=== PATIENT | female | born 1970 | race Caucasian/White ===

== ENCOUNTER 2016-12-07 18:44 | Inpatient (IN) | payer MEDICAID, OTHER ==
[~2016-12-07] VITALS: Ht 172.7 cm; Wt 82.4 kg
[~2016-12-07 18:44] MED LIST: ARIP20TA8 PO; BUTA1CAP29 PO; LAMO200T PO; SERT100T8 PO; SUMA100T3 PO; TOPI100T90 PO; TRAZ100T12 PO
[2016-12-07 19:24] LABS: BILIRUBIN,URINE SMALL (NEG); GLUCOSE,URINE >=1000 mg/dL (NEG); NITRITE,URINE NEGATIVE (NEG); PROTEIN,URINE 100 mg/dL (NEG-TRACE); UROBILINOGEN,URINE 0.2 mg/dL (0.2 mg/dL)
[2016-12-07 19:30] LABS: RBC,URINE 0 /HPF (0-2)
[2016-12-07 19:31] LABS: BACTERIA,URINE MOD /HPF (0-FEW); SQUAMOUS EPITHELIAL CELL,UR MANY /LPF; YEAST,URINE PRESENT /HPF
[2016-12-07] MEDS ORDERED: IV NORMAL SALINE 1000ML BAG 1,000 ML IV SCH (19:38)
[2016-12-07 20:30] LABS: OBC FLU VALID
[2016-12-07] MEDS ORDERED: ONDANSETRON PF 4 MG/2 ML VIAL. IV ONE (20:30)
[2016-12-07] MEDS ORDERED: KETOROLAC 15 MG/ML VIAL. IV ONE (20:30)
[2016-12-07] MEDS ORDERED: METOCLOPRAMIDE HCL 10 MG/2 ML VIAL. IV ONE (20:30)
[2016-12-07 20:33] LABS: BASO % 1 % (0-3); EOS % 0 % (0-3); HEMATOCRIT 46.7 % (36.0-47.0); HEMOGLOBIN 15.5 g/dL (12.0-15.5); LYMPH # 0.8 x10^3/uL (1.0-4.8); LYMPH % 18 % (24-48); MEAN CORPUSCULAR HEMOGLOBIN 29 pg (25-35); MEAN CORPUSCULAR HGB CONC 33 g/dL (31-37); MEAN CORPUSCULAR VOLUME 87 fL (79-100); MONO % 9 % (0-9); NEUT % 72 % (31-73); PLATELET COUNT 249 x10^3/uL (140-400); RED BLOOD COUNT 5.38 x10^6/uL (3.50-5.40); RED CELL DISTRIBUTION WIDTH 13.6 % (11.5-14.5); WHITE BLOOD COUNT 4.4 x10^3/uL (4.0-11.0)
[2016-12-07 20:39] LABS: CALCIUM 8.8 mg/dL (8.5-10.1); CREATININE 0.9 mg/dL (0.6-1.0); GFR 67.7; POTASSIUM 3.7 mmol/L (3.5-5.1)
[2016-12-07 20:44] LABS: ALBUMIN 3.9 g/dL (3.4-5.0); ALBUMIN/GLOBULIN RATIO 1.3 (1.0-1.7); TOTAL BILIRUBIN 0.5 mg/dL (0.2-1.0); TOTAL PROTEIN 6.9 g/dL (6.4-8.2)
[2016-12-07 21:02] LABS: % BASOS 2 % (0-3)
[2016-12-07 21:03] LABS: PLT ESTIMATE ADEQUATE (ADEQUATE)
[2016-12-07] MEDS ORDERED: IV NORMAL SALINE 1000ML BAG 1,000 ML IV ONE (22:15)
[2016-12-07] MEDS: MORPHINE SULFATE 4 MG/ML DISP.SYRIN. IV/SQ PRN ×2 (22:59→23:45)
--- NOTE | 2016-12-07 23:31 | ED.ADGEN ---
Past Medical History Past Medical History: Bipolar, Depression, Diabetes-Type I, Other Additional Past Medical Histor: migraines Past Surgical History: Cholecystectomy, Alcohol Use: None Drug Use: None Adult General Chief Complaint Chief Complaint: HYPERGLYCEMIA HPI HPI Patient is a 46 year old woman, history of type 2 diabetes mellitus, depression , bipolar disorder, who presents emergency department with multiple complaints. Patient states she's been experiencing generalized malaise for the past several days, states that she began experiencing one of her "typical", migraine headaches, most located in the right side of her head, has been experiencing also nausea and vomiting, which is often concurrent with the symptoms, which is usually when she knows that "my sugars are way too high". Patient states she has been taking her medications as directed, has not been checking her sugars. Patient's initial Accu-Chek in the ED is 235. She states that she's had multiple episodes of nausea and vomiting, denies any injuries or sick contacts. No fevers or chills. States that her entire abdomen is sore from vomiting, but this occurred after multiple doses of vomiting. No diarrhea. No weakness emesis or tingling, denies any change in her typical headache type symptoms. No chest pain or shortness of breath. Review of Systems Review of Systems Constitutional: Denies fever or chills. [] Eyes: Denies change in visual acuity. [] HENT: Denies nasal congestion or sore throat. [] Respiratory: Denies cough or shortness of breath. [] Cardiovascular: Denies chest pain or edema. [] GI: Abdominal "soreness", nausea, vomiting, no bloody stools or diarrhea. : Denies dysuria. [] Musculoskeletal: Denies back pain or joint pain. [] Integument: Denies rash. [] Neurologic: Denies headache, focal weakness or sensory changes. [] Endocrine: Denies polyuria or polydipsia. [] Lymphatic: Denies swollen glands. [] Psychiatric: Denies depression or anxiety. [] Current Medications Current Medications Current Medications Medications (Trade) Dose Ordered Sig/Levi Start Time Stop Time Status Last Admin Dose Admin Insulin Human Regular 150 unit/ Sodium Chloride 151.5 ml @ 0 mls/hr CONT PRN PRN 12/08/16 02:00 Ketorolac Tromethamine (Toradol) 10 mg 1X ONCE 12/07/16 20:30 12/07/16 20:31 DC 12/07/16 20:39 10 MG Lidocaine HCl (Xylocaine-Mpf 1% Vial) 1 ml 1X ONCE 12/07/16 23:55 12/07/16 23:56 DC 12/08/16 00:09 1 ML Metoclopramide HCl (Reglan) 10 mg 1X ONCE 12/07/16 20:30 12/07/16 20:31 DC 12/07/16 20:39 10 MG Morphine Sulfate 4 mg PRN Q15MIN PRN 12/07/16 22:45 12/08/16 22:44 12/08/16 00:27 4 MG Ondansetron HCl (Zofran) 4 mg 1X ONCE 12/07/16 20:30 12/07/16 20:31 DC 12/07/16 20:26 4 MG Ondansetron HCl 4 mg 4 mg 1X ONCE 12/08/16 00:15 12/08/16 00:16 DC 12/08/16 00:27 4 MG Potassium Chloride 100 ml @ 100 mls/hr PRN Q1HR PRN 12/08/16 01:45 Sodium Chloride (Iv Sodium Chloride 0.9% 1000ml Bag) 1,000 ml @ 500 mls/hr 1X ONCE 12/08/16 01:45 12/08/16 03:44 Allergies Allergies Allergies Coded Allergies Type Severity Reaction Last Updated Verified No Known Drug Allergies 11/12/16 No Physical Exam Physical Exam Constitutional: Well developed, well nourished, no acute distress, non-toxic appearance. [] HENT: Normocephalic, atraumatic, bilateral external ears normal, oropharynx moist, no oral exudates, nose normal. [] Eyes: PERRLA, EOMI, conjunctiva normal, no discharge. [] Neck: Normal range of motion, no tenderness, supple, no stridor. [] Cardiovascular:Heart rate regular rhythm, no murmur [] Lungs & Thorax: Bilateral breath sounds clear to auscultation [] Abdomen: Bowel sounds normal, soft, no tenderness, no masses, no pulsatile masses. [] Skin: Warm, dry, no erythema, no rash. [] Back: No tenderness, no CVA tenderness. [] Extremities: No tenderness, no cyanosis, no clubbing, ROM intact, no edema. [] Neurologic: Alert and oriented X 3, normal motor function, normal sensory function, no focal deficits noted. [] Psychologic: Affect normal, judgement normal, mood normal. [] Current Patient Data Vital Signs Vital Signs Date Time Temp Pulse Resp B/P Pulse Ox O2 Delivery O2 Flow Rate FiO2 12/08/16 00:27 Room Air 12/08/16 00:11 98 12/07/16 21:00 116 14 109/66 12/07/16 19:10 98.4 98.4 Lab Values Laboratory Tests Test 12/07/16 19:07 12/07/16 19:11 12/07/16 19:20 12/07/16 20:00 Urine Collection Type Unknown Urine Color Yellow Urine Clarity Cloudy Urine pH 6.0 Urine Specific [place] >=1.030 Urine Protein 100mg/dL (NEG-TRACE) Urine Glucose (UA) >=1000mg/dL (NEG) Urine Ketones (Stick) >=80mg/dL (NEG) Urine Blood Negative (NEG) Urine Nitrite Negative (NEG) Urine Bilirubin Small (NEG) Urine Urobilinogen Dipstick 0.2mg/dL (0.2 mg/dL) Urine Leukocyte Esterase Negative (NEG) Urine RBC 0/HPF (0-2) Urine WBC 5-10/HPF (0-4) Urine Squamous Epithelial Cells Many/LPF Urine Bacteria Mod/HPF (0-FEW) Urine Yeast Present/HPF Glucose (Fingerstick) 233mg/dL (70-99) H POC Urine HCG, Qualitative Hcg negative (Negative) Influenza Type A Antigen Negative (NEGATIVE) Influenza Type B Antigen Negative (NEGATIVE) Test 12/07/16 20:15 12/07/16 23:35 White Blood Count 4.4x10^3/uL (4.0-11.0) Red Blood Count 5.38x10^6/uL (3.50-5.40) Hemoglobin 15.5g/dL (12.0-15.5) Hematocrit 46.7% (36.0-47.0) Mean Corpuscular Volume 87fL (79-100) Mean Corpuscular Hemoglobin 29pg (25-35) Mean Corpuscular Hemoglobin Concent 33g/dL (31-37) Red Cell Distribution Width 13.6% (11.5-14.5) Platelet Count 249x10^3/uL (140-400) Neutrophils (%) (Auto) 72% (31-73) Lymphocytes (%) (Auto) 18% (24-48) L Monocytes (%) (Auto) 9% (0-9) Eosinophils (%) (Auto) 0% (0-3) Basophils (%) (Auto) 1% (0-3) Neutrophils # (Auto) 3.1x10^3uL (1.8-7.7) Lymphocytes # (Auto) 0.8x10^3/uL (1.0-4.8) L Monocytes # (Auto) 0.4x10^3/uL (0.0-1.1) Eosinophils # (Auto) 0.0x10^3/uL (0.0-0.7) Basophils # (Auto) 0.0x10^3/uL (0.0-0.2) Segmented Neutrophils % 70% (35-66) H Band Neutrophils % 4% (0-9) Lymphocytes % 20% (24-48) L Monocytes % 4% (0-10) Basophils % 2% (0-3) Platelet Estimate Adequate (ADEQUATE) Sodium Level 141mmol/L (136-145) Potassium Level 3.7mmol/L (3.5-5.1) Chloride Level 104mmol/L (98-107) Carbon Dioxide Level 14mmol/L (21-32) L Anion Gap 23 (6-14) H Blood Urea Nitrogen 7mg/dL (7-20) Creatinine 0.9mg/dL (0.6-1.0) Estimated GFR (Cockcroft-Gault) 67.7 BUN/Creatinine Ratio 8 (6-20) Glucose Level 269mg/dL (70-99) H Calcium Level 8.8mg/dL (8.5-10.1) Total Bilirubin 0.5mg/dL (0.2-1.0) Aspartate Amino Transferase (AST) 13U/L (15-37) L Alanine Aminotransferase (ALT) 21U/L (14-59) Alkaline Phosphatase 94U/L (46-116) Total Protein 6.9g/dL (6.4-8.2) Albumin 3.9g/dL (3.4-5.0) Albumin/Globulin Ratio 1.3 (1.0-1.7) Glucose (Fingerstick) 197mg/dL (70-99) H Laboratory Tests 12/07/16 20:15 Laboratory Tests 12/07/16 20:15 EKG EKG EC: Sinus tachycardia, heart rate 125 beats minute, upright axis with limiting baseline artifact, QTC of 484, ND 114, QRS of 134, no ST elevations or depressions, abnormal ECG, as interpreted by me. Radiology/Procedures Radiology/Procedures Chest x-ray: One view: Normal cardiopulmonary silhouette, no infiltrates, no effusions, no soft tissue or bone abdomen abnormalities notified, no pneumothorax. As interpreted by me. [] Course & Med Decision Making Course & Med Decision Making Pertinent Labs and Imaging studies reviewed. (See chart for details) Patient noted be tachycardic initially, complains of abdominal pain, headache, multiple sodas of vomiting. Patient states that he is consistent with her previous episodes of migraine headache. Denies any changes from previous episodes aside from intensity at this time. She received Toradol, IV fluids, Zofran ED. No further vomiting at this time. On reevaluation she remains tachycardic, in the 1 teens, ketones resulted at greater than 80, patient does have an anion gap of 23, glucose in the 230s, also noted to have a left shift with mild bandemia, no source of infection identified on imaging or on urinalysis, patient with no fever. He believes that this shift is consistent with the patient's underlying hyperglycemic state and persistent vomiting, no indication of underlying infection. iscussed admission to the hospital with the patient, as I believe that she is experiencing elements of diabetic ketoacidosis with a relatively low glucose, we also discussed imaging of the head due to the persistence of her headache. Patient declined both of these interventions. Agreeable to receiving a second liter of fluid, along with additional medication for her headache. Patient received additional pain medication, including nebulized lidocaine. On reevaluation states her headache is much better at this time, she is feeling much better after receiving the fluids and medications as stated, however when she ambulated, heart rate did increase again up to the 120s, saturation is 100% room air, blood pressure is 1 teens over 60s. For third time I address with the patient my concerns regarding her chemistries, and her physical examination, at this time the patient states that she is agreeable for addition of a hospital although her headache is significantly better. Patient was ambulating without difficulty in the ED aside from the tachycardia as stated. Will be initiated on DKA protocol, repeat glucose is 197, repeat labs are pending at this time. She does not currently her primary care provider as she recently moved to the area. Will admit to Dr. Riley internal medicine, with bridge orders as stated per his request. Dragon Disclaimer Dragon Disclaimer This electronic medical record was generated, in whole or in part, using a voice recognition dictation system. Departure Impression: Primary Impression: Diabetic ketoacidosis Additional Impression: Migraine headache Disposition: 09 ADMITTED INPATIENT Admitting Physician: Scott Riley Condition: IMPROVED Problem Qualifiers Primary Impression: Diabetic ketoacidosis Diabetes mellitus type: type 2 Diabetes mellitus complication detail: without coma Qualified Code: E13.10 - Other specified diabetes mellitus with ketoacidosis without coma Additional Impression: Migraine headache Migraine type: unspecified Status migrainosus presence: without status migrainosus Intractability: not intractable Qualified Code: G43.909 - Migraine, unspecified, not intractable, without status migrainosus DANNY BALDWIN DO Dec 07, 2016 23:31
[2016-12-07] MEDS ORDERED: LIDOCAINE 1% PF 2 ML VIAL. NEB ONE (23:55)
[2016-12-08] MEDS ORDERED: ONDANSETRON PF 4 MG/2 ML VIAL. IV ONE (00:15)
[2016-12-08] MEDS: MORPHINE SULFATE 4 MG/ML DISP.SYRIN. IV/SQ PRN ×3 (00:27→07:13)
[2016-12-08] MEDS ORDERED: POTASSIUM CHLORIDE 10MEQ 100 ML IV PRN ×3 (01:45)
[2016-12-08] MEDS ORDERED: ACETAMINOPHEN 325 MG TABLET. PO PRN (01:45)
[2016-12-08] MEDS ORDERED: IV NORMAL SALINE 1000ML BAG 1,000 ML IV ONE (01:45)
[2016-12-08] MEDS ORDERED: INSULIN REGULAR VIAL 150 UNIT in 0.9 % SODIUM CHLORIDE 150ML 150 ML IV PRN (02:00)
[2016-12-08] MEDS: ONDANSETRON PF 4 MG/2 ML VIAL. IV PRN (04:00)
[2016-12-08] MEDS: IV NORMAL SALINE 1000ML BAG 1,000 ML IV SCH ×6 (05:00→22:27)
[2016-12-08] MEDS ORDERED: METOCLOPRAMIDE HCL 10 MG/2 ML VIAL. IV ONE (07:00)
[2016-12-08] MEDS ORDERED: MORPHINE SULFATE 2 MG/ML DISP.SYRIN. IV ONE (07:00)
--- NOTE | 2016-12-08 07:57 | RAD ---
Portable chest, 12/07/2016: History: Malaise The heart size and pulmonary vascularity are normal. The lungs are clear. There is no evidence of pleural fluid. IMPRESSION: No acute cardiopulmonary abnormality is detected.
[2016-12-08 08:12] LABS: BARBITURATES POS (NEG); BENZODIAZEPINES NEG (NEG); CANNABINOIDS NEG (NEG); COCAINE NEG (NEG); METHADONE NEG (NEG); OPIATES POS (NEG); PHENCYCLIDINE NEG (NEG)
[2016-12-08 08:15] LABS: ETHANOL, URINE POS (NEG)
--- NOTE | 2016-12-08 08:32 | EKG ---
[facility] [address] [place] [id number] Test Date: 2016-12-07 Test Time: 19:17:07 Pat Name: RAMAKRISHNA MCNAMARA Department: Room: ED HOLD 1 Gender: F Operations Processor: : 1970 Requested By: DANNY BALDWIN Order Number: [id number] Reading MD: Keegan Glass Measurements Intervals [place] Rate: 125 P: -74 ND: 114 QRS: 81 QRSD: 134 T: 50 QT: 334 QTc: 484 Interpretive Statements SINUS TACHYCARDIA RIGHT BUNDLE BRANCH BLOCK QRS(T) CONTOUR ABNORMALITY CONSIDER ANTEROLATERAL MYOCARDIAL DAMAGE ABNORMAL ECG Electronically Signed On 12-23-2016 14:38:36 [employer] by Keegan Glass
[2016-12-08 08:50] LABS: CREATININE 0.7 mg/dL (0.6-1.0); GFR 90.5
[2016-12-08] MEDS ORDERED: ONDA4TAB10 SL (08:50)
[2016-12-08] MEDS ORDERED: IBUP-1060 PO (08:50)
[2016-12-08] MEDS ORDERED: SUMA100T3 PO (08:50)
[2016-12-08] MEDS ORDERED: HYDR-971 PO (08:50)
[2016-12-08 08:58] LABS: POTASSIUM 2.9 mmol/L (3.5-5.1)
[2016-12-08] MEDS ORDERED: POTASSIUM CHLORIDE 20 MEQ TABLET.ER. PO ONE ×2 (09:15→12:00)
--- NOTE | 2016-12-08 09:23 | PDOC1 ---
History and Physical Date of Admission Date of Admission DATE: 12/08/16 TIME: 09:09 Identification/Chief Complaint Chief Complaint abd pain Source Source: Chart review, Patient History of Present Illness History of Present Illness Ms. 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 She takes 30 Lantus and sliding scale humalog, but without her glucometer, blood sugars had probably been running high She has nausea and vomiting and abd pain that is now improved in the ER< IV fluid given, malaise and fatigue for fays, stated that she knows that "my sugars are way too high". P some headache reported, "sort of" like her migranes, she would like Imitrex to be avail Past Medical History Past Medical History history of type 1 diabetes mellitus, depression, bipolar disorder, Musculoskeletal: low back pain Endocrine: Diabetes Past Surgical History Past Surgical History: Cholecystectomy, Family History Family History: Diabetes Social History Smoke: No ( ) ALCOHOL: none Drugs: None Current Problem List Problem List Problems Medical Problems: (1) Diabetic ketoacidosis Status: Acute (2) DKA (diabetic ketoacidoses) Status: Acute (3) Migraine Status: Acute (4) Migraine headache Status: Acute Problems: Current Medications Current Medications Current Medications Sodium Chloride (Iv Sodium Chloride 0.9% 1000ml Bag) 1,000 ml @ 1,000 mls/hr Q1H IV Last administered on 12/07/16 20:26; Start 12/07/16 at 19:38; Stop at 20:37; Status DC Ondansetron HCl (Zofran) 4 mg 1X ONCE IV Last administered on 12/07/16 20:26 ; Start 12/07/16 at 20:30; Stop 12/07/16 at 20:31; Status DC Ketorolac Tromethamine (Toradol) 10 mg 1X ONCE IV Last administered on 20:39; Start 12/07/16 at 20:30; Stop 12/07/16 at 20:31; Status DC Metoclopramide HCl 10 mg 10 mg 1X ONCE IV Last administered on 12/07/16 20:39 ; Start 12/07/16 at 20:30; Stop 12/07/16 at 20:31; Status DC Sodium Chloride (Iv Sodium Chloride 0.9% 1000ml Bag) 1,000 ml @ 1,000 mls/hr 1X ONCE IV Last administered on 12/07/16 22:14; Start 12/07/16 at 22:15; Stop 12/07/16 at 23:14; Status DC Morphine Sulfate 4 mg PRN Q15MIN PRN IV/SQ PAIN GREATER THAN 3/10 Last administered on 12/08/16 07:13; Start 12/07/16 at 22:45; Stop 12/08/16 at 22:44 Lidocaine HCl (Xylocaine-Mpf 1% Vial) 1 ml 1X ONCE NEB Last administered on 00:09; Start 12/07/16 at 23:55; Stop 12/07/16 at 23:56; Status DC Ondansetron HCl 4 mg 4 mg 1X ONCE IV Last administered on 12/08/16 00:27; Start 12/08/16 at 00:15; Stop 12/08/16 at 00:16; Status DC Sodium Chloride 1,000 ml @ 250 mls/hr Q4H IV Last administered on 12/08/16 05 :00; Start 12/08/16 at 01:38 Insulin Human Regular 150 unit/ Sodium Chloride 151.5 ml @ 0 mls/hr CONT PRN PRN IV PER PROTOCOL Last administered on 12/08/16 02:04; Start 12/08/16 at 02: 00 Potassium Chloride 100 ml @ 100 mls/hr PRN Q1HR PRN IV SEE COMMENTS; Start at 01:45 Potassium Chloride 100 ml @ 100 mls/hr PRN Q1HR PRN IV SEE COMMENTS; Start at 01:45 Potassium Chloride 100 ml @ 100 mls/hr PRN Q1HR PRN IV SEE COMMENTS; Start at 01:45 Sodium Chloride (Iv Sodium Chloride 0.9% 1000ml Bag) 1,000 ml @ 500 mls/hr 1X ONCE IV Last administered on 12/08/16 02:00; Start 12/08/16 at 01:45; Stop at 03:44; Status DC Ondansetron HCl (Zofran) 4 mg PRN Q8HRS PRN IV NAUSEA/VOMITING Last administered on 12/08/16 04:00; Start 12/08/16 at 01:45; Stop 12/09/16 at 01:44 Acetaminophen (Tylenol) 650 mg PRN Q4HRS PRN PO FEVER; Start 12/08/16 at 01:45 ; Stop 12/09/16 at 01:44 Metoclopramide HCl (Reglan) 5 mg 1X ONCE IV Last administered on 12/08/16 07: 13; Start 12/08/16 at 07:00; Stop 12/08/16 at 07:01; Status DC Morphine Sulfate 2 mg 1X ONCE IV ; Start 12/08/16 at 07:00; Stop 12/08/16 at 07 :01; Status DC Metoclopramide HCl (Reglan) 5 mg PRN BFRMEALHC PRN PO NAUSEA/VOMITING; Start at 08:45 Active Scripts Active Zofran Odt (Ondansetron) 4 Mg Tab.rapdis 1 Tab SL Q8HRS PRN Ibuprofen 800 Mg Tablet 800 Mg PO Q12HR PRN [place] 5-325 Tablet (Acetaminophen/Hydrocodone Bitart) 1 Each Tablet 1 Tab PO BID PRN Imitrex (Sumatriptan Succinate) 100 Mg Tablet 1 Tab PO BID PRN Reported Fioricet 50-300-40 Mg Capsule (Butalb/Acetaminophen/Caffeine) 1 Each Capsule 2 Each PO PRN Q4HRS PRN Fioricet 50-300-40 Mg Capsule (Butalb/Acetaminophen/Caffeine) 1 Each Capsule 1 Each PO PRN Q4HRS PRN Lamotrigine 200 Mg Tablet 200 Mg PO HS Topiramate 100 Mg Tablet 1 Tab PO BID Abilify (Aripiprazole) 20 Mg Tablet 20 Mg PO DAILY Trazodone Hcl 100 Mg Tablet 1 Tab PO QHS PRN Sertraline Hcl 100 Mg Tablet 100 Mg PO HS Allergies Allergies: Coded Allergies: No Known Drug Allergies (Unverified , 11/12/16) ROS General: YES: Fatigue, Malaise, No: Appetite, Chills, Night Sweats, Other PSYCHOLOGICAL ROS: YES: Anxiety, No: Behavioral Disorder, Concentration difficultie, Decreased libido, Depression, Disorientation, Hallucinations, Hostility, Irritablity, Memory difficulties, Mood Swings, Obsessive thoughts, Other, Physical abuse, Sexual abuse, Sleep disturbances, Suicidal ideation Eyes: No Blurry vision, No Decreased vision, No Double vision, No Dry eyes, No Excessive tearing, No Eye Pain, No Itchy Eyes, No Loss of vision, No Other, No Photophobia, No Scotomata, No Uses contacts, No Uses glasses HEENT: No: Epistaxis, Heacaches, Hearing change, Nasal congestion, Nasal discharge, Oral lesions, Other, Sinus pain, Sneezing, Snoring, Sore Throat, Tinnitus, Vertigo, Visual Changes, Vocal changes Respiratory: No: Cough, Hemoptysis, Orthopnea, Other, Pleuritic Pain, SOB with excertion, Shortness of breath, Sputum Changes, Stridor, Tachypnea, Wheezing Cardiovascular: No Chest Pain, No Edema, No Lt Headedness, No Orthopnea, No Other, No Palpitations, No Paroxysmal Noc. Dyspnea Gastrointestinal: Yes Abdominal Pain, Yes Nausea, Yes Vomiting, No Constipation, No Diarrhea, No Hematochezia, No Melena, No Other Genitourinary: No , No , No , No , No , No , No , No Discharge, No Dysuria, No Flank Pain, No Frequency, No Hematuria, No Incontinence, No Other, No Pain, No Retention, No Urgency Musculoskeletal: Yes Joint Pain Neurological: No Behavorial Changes, No Bowel/Bladder ControlChng, No Confusion , No Dizziness, No Gait Disturbance, No Headaches, No Impaired Coord/balance, No Memory Loss, No Numbness/Tingling, No Other, No Seizures, No Speech Problems , No Tremors, No Visual Changes, No Weakness Skin: Yes Dry Skin Physical Exam General: Alert, Cooperative, No acute distress HEENT: EOMI, Mucous membr. moist/pink Abdomen: Normal bowel sounds, Soft, Other (min tender) Extremities: No clubbing Skin: No breakdown Neuro: Normal gait, Normal tone, Sensation intact Psych/Mental Status: Mood NL Vitals Vitals Vital Signs Date Time Temp Pulse Resp B/P Pulse Ox O2 Delivery O2 Flow Rate FiO2 12/08/16 07:13 98 Room Air 12/08/16 06:35 104 10 104/61 12/07/16 19:10 98.4 98.4 Labs Labs Laboratory Tests Test 12/07/16 19:07 12/07/16 19:11 12/07/16 19:20 12/07/16 20:00 Urine Collection Type Unknown Urine Color Yellow Urine Clarity Cloudy Urine pH 6.0 Urine Specific [place] >=1.030 Urine Protein 100mg/dL (NEG-TRACE) Urine Glucose (UA) >=1000mg/dL (NEG) Urine Ketones (Stick) >=80mg/dL (NEG) Urine Blood Negative (NEG) Urine Nitrite Negative (NEG) Urine Bilirubin Small (NEG) Urine Urobilinogen Dipstick 0.2mg/dL (0.2 mg/dL) Urine Leukocyte Esterase Negative (NEG) Urine RBC 0/HPF (0-2) Urine WBC 5-10/HPF (0-4) Urine Squamous Epithelial Cells Many/LPF Urine Bacteria Mod/HPF (0-FEW) Urine Yeast Present/HPF Urine Opiates Screen Pos (NEG) Urine Methadone Screen Neg (NEG) Urine Barbiturates Pos (NEG) Urine Phencyclidine Screen Neg (NEG) Urine Amphetamine/Methamphetamine Neg (NEG) Urine Benzodiazepines Screen Neg (NEG) Urine Cocaine Screen Neg (NEG) Urine Cannabinoids Screen Neg (NEG) Urine Ethyl Alcohol Pos (NEG) Glucose (Fingerstick) 233mg/dL (70-99) Bedside Urine HCG, Qualitative Hcg negative (Negative) Influenza Type A Antigen Negative (NEGATIVE) Influenza Type B Antigen Negative (NEGATIVE) Test 12/07/16 20:15 12/07/16 23:35 12/08/16 01:55 12/08/16 03:12 White Blood Count 4.4x10^3/uL (4.0-11.0) Red Blood Count 5.38x10^6/uL (3.50-5.40) Hemoglobin 15.5g/dL (12.0-15.5) Hematocrit 46.7% (36.0-47.0) Mean Corpuscular Volume 87fL (79-100) Mean Corpuscular Hemoglobin 29pg (25-35) Mean Corpuscular Hemoglobin Concent 33g/dL (31-37) Red Cell Distribution Width 13.6% (11.5-14.5) Platelet Count 249x10^3/uL (140-400) Neutrophils (%) (Auto) 72% (31-73) Lymphocytes (%) (Auto) 18% (24-48) Monocytes (%) (Auto) 9% (0-9) Eosinophils (%) (Auto) 0% (0-3) Basophils (%) (Auto) 1% (0-3) Neutrophils # (Auto) 3.1x10^3uL (1.8-7.7) Lymphocytes # (Auto) 0.8x10^3/uL (1.0-4.8) Monocytes # (Auto) 0.4x10^3/uL (0.0-1.1) Eosinophils # (Auto) 0.0x10^3/uL (0.0-0.7) Basophils # (Auto) 0.0x10^3/uL (0.0-0.2) Segmented Neutrophils % 70% (35-66) Band Neutrophils % 4% (0-9) Lymphocytes % 20% (24-48) Monocytes % 4% (0-10) Basophils % 2% (0-3) Platelet Estimate Adequate (ADEQUATE) Sodium Level 141mmol/L (136-145) Potassium Level 3.7mmol/L (3.5-5.1) Chloride Level 104mmol/L (98-107) Carbon Dioxide Level 14mmol/L (21-32) Anion Gap 23 (6-14) Blood Urea Nitrogen 7mg/dL (7-20) Creatinine 0.9mg/dL (0.6-1.0) Estimated GFR (Cockcroft-Gault) 67.7 BUN/Creatinine Ratio 8 (6-20) Glucose Level 269mg/dL (70-99) Calcium Level 8.8mg/dL (8.5-10.1) Total Bilirubin 0.5mg/dL (0.2-1.0) Aspartate Amino Transf (AST/SGOT) 13U/L (15-37) Alanine Aminotransferase (ALT/SGPT) 21U/L (14-59) Alkaline Phosphatase 94U/L (46-116) Total Protein 6.9g/dL (6.4-8.2) Albumin 3.9g/dL (3.4-5.0) Albumin/Globulin Ratio 1.3 (1.0-1.7) Glucose (Fingerstick) 197mg/dL (70-99) 313mg/dL (70-99) 268mg/dL (70-99) Test 12/08/16 04:32 12/08/16 05:59 12/08/16 07:02 12/08/16 08:15 Glucose (Fingerstick) 210mg/dL (70-99) 139mg/dL (70-99) 152mg/dL (70-99) Sodium Level 143mmol/L (136-145) Potassium Level 2.9mmol/L (3.5-5.1) Chloride Level 110mmol/L (98-107) Carbon Dioxide Level 18mmol/L (21-32) Anion Gap 15 (6-14) Blood Urea Nitrogen 6mg/dL (7-20) Creatinine 0.7mg/dL (0.6-1.0) Estimated GFR (Cockcroft-Gault) 90.5 Glucose Level 125mg/dL (70-99) Calcium Level 8.0mg/dL (8.5-10.1) Phosphorus Level 1.0mg/dL (2.6-4.7) Laboratory Tests Test 12/07/16 19:07 12/07/16 19:11 12/07/16 19:20 12/07/16 20:00 Urine Collection Type Unknown Urine Color Yellow Urine Clarity Cloudy Urine pH 6.0 Urine Specific [place] >=1.030 Urine Protein 100mg/dL (NEG-TRACE) Urine Glucose (UA) >=1000mg/dL (NEG) Urine Ketones (Stick) >=80mg/dL (NEG) Urine Blood Negative (NEG) Urine Nitrite Negative (NEG) Urine Bilirubin Small (NEG) Urine Urobilinogen Dipstick 0.2mg/dL (0.2 mg/dL) Urine Leukocyte Esterase Negative (NEG) Urine RBC 0/HPF (0-2) Urine WBC 5-10/HPF (0-4) Urine Squamous Epithelial Cells Many/LPF Urine Bacteria Mod/HPF (0-FEW) Urine Yeast Present/HPF Urine Opiates Screen Pos (NEG) Urine Methadone Screen Neg (NEG) Urine Barbiturates Pos (NEG) Urine Phencyclidine Screen Neg (NEG) Urine Amphetamine/Methamphetamine Neg (NEG) Urine Benzodiazepines Screen Neg (NEG) Urine Cocaine Screen Neg (NEG) Urine Cannabinoids Screen Neg (NEG) Urine Ethyl Alcohol Pos (NEG) Glucose (Fingerstick) 233mg/dL (70-99) Bedside Urine HCG, Qualitative Hcg negative (Negative) Influenza Type A Antigen Negative (NEGATIVE) Influenza Type B Antigen Negative (NEGATIVE) Test 12/07/16 20:15 12/07/16 23:35 2/15/17 01:55 12/08/16 03:12 White Blood Count 4.4x10^3/uL (4.0-11.0) Red Blood Count 5.38x10^6/uL (3.50-5.40) Hemoglobin 15.5g/dL (12.0-15.5) Hematocrit 46.7% (36.0-47.0) Mean Corpuscular Volume 87fL (79-100) Mean Corpuscular Hemoglobin 29pg (25-35) Mean Corpuscular Hemoglobin Concent 33g/dL (31-37) Red Cell Distribution Width 13.6% (11.5-14.5) Platelet Count 249x10^3/uL (140-400) Neutrophils (%) (Auto) 72% (31-73) Lymphocytes (%) (Auto) 18% (24-48) Monocytes (%) (Auto) 9% (0-9) Eosinophils (%) (Auto) 0% (0-3) Basophils (%) (Auto) 1% (0-3) Neutrophils # (Auto) 3.1x10^3uL (1.8-7.7) Lymphocytes # (Auto) 0.8x10^3/uL (1.0-4.8) Monocytes # (Auto) 0.4x10^3/uL (0.0-1.1) Eosinophils # (Auto) 0.0x10^3/uL (0.0-0.7) Basophils # (Auto) 0.0x10^3/uL (0.0-0.2) Segmented Neutrophils % 70% (35-66) Band Neutrophils % 4% (0-9) Lymphocytes % 20% (24-48) Monocytes % 4% (0-10) Basophils % 2% (0-3) Platelet Estimate Adequate (ADEQUATE) Sodium Level 141mmol/L (136-145) Potassium Level 3.7mmol/L (3.5-5.1) Chloride Level 104mmol/L (98-107) Carbon Dioxide Level 14mmol/L (21-32) Anion Gap 23 (6-14) Blood Urea Nitrogen 7mg/dL (7-20) Creatinine 0.9mg/dL (0.6-1.0) Estimated GFR (Cockcroft-Gault) 67.7 BUN/Creatinine Ratio 8 (6-20) Glucose Level 269mg/dL (70-99) Calcium Level 8.8mg/dL (8.5-10.1) Total Bilirubin 0.5mg/dL (0.2-1.0) Aspartate Amino Transf (AST/SGOT) 13U/L (15-37) Alanine Aminotransferase (ALT/SGPT) 21U/L (14-59) Alkaline Phosphatase 94U/L (46-116) Total Protein 6.9g/dL (6.4-8.2) Albumin 3.9g/dL (3.4-5.0) Albumin/Globulin Ratio 1.3 (1.0-1.7) Glucose (Fingerstick) 197mg/dL (70-99) 313mg/dL (70-99) 268mg/dL (70-99) Test 12/08/16 04:32 12/08/16 05:59 12/08/16 07:02 12/08/16 08:15 Glucose (Fingerstick) 210mg/dL (70-99) 139mg/dL (70-99) 152mg/dL (70-99) Sodium Level 143mmol/L (136-145) Potassium Level 2.9mmol/L (3.5-5.1) Chloride Level 110mmol/L (98-107) Carbon Dioxide Level 18mmol/L (21-32) Anion Gap 15 (6-14) Blood Urea Nitrogen 6mg/dL (7-20) Creatinine 0.7mg/dL (0.6-1.0) Estimated GFR (Cockcroft-Gault) 90.5 Glucose Level 125mg/dL (70-99) Calcium Level 8.0mg/dL (8.5-10.1) Phosphorus Level 1.0mg/dL (2.6-4.7) VTE Prophylaxis Ordered VTE Prophylaxis Devices: No VTE Pharmacological Prophylaxi: Yes Assessment/Plan Assessment/Plan DKA, admit hypokalemia nausea and vomiting and abd pain, acute viral gastritis, improved bipolar 2 Dm1 pt feels improved, and would like to be discharged, this AM, Potassium 40 X2 po, if able to sulma. then may be able to DC soon gap acidosis persists cont aggressive IV fluid pt needs to est primary care script written for glucometer TOMAS COTTER MD Dec 08, 2016 09:23
[2016-12-08] MEDS ORDERED: POTASSIUM CHLORIDE 10MEQ 100 ML IV SCH (09:30)
[2016-12-08] MEDS ORDERED: IBUPROFEN 800 MG TABLET. PO PRN (09:30)
[2016-12-08] MEDS ORDERED: ONDANSETRON ODT 4 MG TAB.RAPDIS PO PRN (09:30)
[2016-12-08] MEDS ORDERED: MAGNESIUM SULFATE 2GM 50 ML IV ONE (09:30)
[2016-12-08] MEDS ORDERED: SUMATRIPTAN SUCCINATE 100 MG TABLET. PO PRN (09:30)
[2016-12-08] MEDS ORDERED: traZODone 100 MG TABLET. PO PRN (09:30)
[2016-12-08] MEDS ORDERED: BUTALB/APAP/CAFEIN 50/325/40MG TABLET. PO PRN (10:15)
[2016-12-08] MEDS: HYDROCODONE/APAP 5/325MG TABLET. PO PRN (10:27)
[2016-12-08] MEDS: METOCLOPRAMIDE 5 MG TABLET PO PRN (10:28)
[2016-12-08] MEDS: TOPIRAMATE 100 MG TABLET. PO SCH ×2 (10:29→21:25)
[2016-12-08] MEDS: ARIPIPRAZOLE 5 MG TABLET. PO SCH (10:29)
[2016-12-08] MEDS: SERTRALINE 50 MG TABLET. PO SCH (10:29)
[2016-12-08] MEDS ORDERED: INSU100I13 SQ (10:52)
[2016-12-08] MEDS ORDERED: INSU100C SQ (10:52)
[2016-12-08 11:16] VITALS: BP 124/76
[2016-12-08] MEDS: SUMATRIPTAN SUCCINATE 100 MG TABLET. PO PRN (11:45)
[2016-12-08 15:07] VITALS: BP 111/80
[2016-12-08] MEDS ORDERED: DEXTROSE 50% 25 GM / 50ML DISP.SYRIN. IV PRN (18:45)
[2016-12-08 19:00] VITALS: BP 103/70
[2016-12-08] MEDS ORDERED: MAGNESIUM SULFATE 4GM 100 ML IV ONE (19:00)
[2016-12-08] MEDS ORDERED: MAGNESIUM HYDROXIDE 2,400 MG/30 ML ORAL.SUSP. PO PRN (19:45)
[2016-12-08] MEDS ORDERED: POLYETHYLENE GLYCOL 3350 17 GM PACKET. PO PRN (19:45)
[2016-12-08] MEDS ORDERED: DOCUSATE SODIUM 100 MG CAPSULE PO PRN (19:45)
[2016-12-08] MEDS ORDERED: POLYETHYLENE GLYCOL 3350 17 GM PACKET. PO ONE (19:45)
[2016-12-08] MEDS ORDERED: INSULIN DETEMIR 300 UNITS/3 ML INSULN.PEN. SQ SCH (21:00)
[2016-12-08] MEDS: lamoTRIgine 100 MG TABLET. PO SCH (21:25)
[2016-12-08 23:00] VITALS: BP 102/59
[2016-12-09] MEDS: ONDANSETRON PF 4 MG/2 ML VIAL. IV PRN (01:18)
[2016-12-09] MEDS: IV NORMAL SALINE 1000ML BAG 1,000 ML IV SCH ×3 (01:25→12:40)
[2016-12-09] MEDS: SUMATRIPTAN SUCCINATE 100 MG TABLET. PO PRN (01:32)
[2016-12-09 03:00] VITALS: BP_SYST 102; BP_SYST 119; BP_DIAS 59; BP_DIAS 74
[2016-12-09 06:07] LABS: CALCIUM 8.5 mg/dL (8.5-10.1); CREATININE 0.6 mg/dL (0.6-1.0); GFR 108.1; POTASSIUM 3.3 mmol/L (3.5-5.1)
[2016-12-09 06:18] LABS: BASO % 1 % (0-3); EOS % 1 % (0-3); HEMATOCRIT 40.2 % (36.0-47.0); HEMOGLOBIN 13.5 g/dL (12.0-15.5); LYMPH # 1.4 x10^3/uL (1.0-4.8); LYMPH % 27 % (24-48); MEAN CORPUSCULAR HEMOGLOBIN 29 pg (25-35); MEAN CORPUSCULAR HGB CONC 34 g/dL (31-37); MEAN CORPUSCULAR VOLUME 87 fL (79-100); MONO % 11 % (0-9); NEUT % 61 % (31-73); PLATELET COUNT 183 x10^3/uL (140-400); RED BLOOD COUNT 4.64 x10^6/uL (3.50-5.40); RED CELL DISTRIBUTION WIDTH 14.2 % (11.5-14.5); WHITE BLOOD COUNT 5.2 x10^3/uL (4.0-11.0)
[2016-12-09 07:00] VITALS: BP 102/72
[2016-12-09] MEDS ORDERED: POTASSIUM CHLORIDE 20 MEQ TABLET.ER. PO SCH (08:00)
[2016-12-09] MEDS: ARIPIPRAZOLE 5 MG TABLET. PO SCH (08:46)
[2016-12-09] MEDS: SERTRALINE 50 MG TABLET. PO SCH (08:46)
[2016-12-09] MEDS: TOPIRAMATE 100 MG TABLET. PO SCH ×2 (08:46→21:56)
[2016-12-09] MEDS ORDERED: DOCUSATE SODIUM 100 MG CAPSULE PO SCH (09:00)
[2016-12-09] MEDS: INSULIN ASPART 300 UNITS/3 ML INSULN.PEN SQ SCH ×6 (09:05→18:28)
[2016-12-09 11:00] VITALS: BP 102/64
--- NOTE | 2016-12-09 13:03 | PDOC ---
PROGRESS NOTES Chief Complaint Chief Complaint DKA ASSESSMENT AND PLAN: 1. DKA: improving. wean insulin gtt 2. Hyperglycemia: restart home regimen, titrate as needed 3. UTI: empiric ceftriax; await ID and sensitivities 4. Hypokalemia: improving. cont IV repletion 5. Bipolar D/O: continue impressive home regimen 6. Multi-substance abuse: screen pos for EtOH, benzos and opiates. monitor for W/D Vitals Vitals Vital Signs Date Time Temp Pulse Resp B/P Pulse Ox O2 Delivery O2 Flow Rate FiO2 12/09/16 11:00 98.3 116 16 102/64 99 Nasal Cannula 2.0 98.3 Physical Exam General: Alert, Cooperative, No acute distress Lungs: Clear Abdomen: Normal bowel sounds, Soft, Other (min tender) Extremities: No clubbing Skin: No breakdown Labs LABS Laboratory Tests Test 12/08/16 13:47 12/08/16 15:57 12/08/16 16:11 12/08/16 17:16 Glucose (Fingerstick) 161mg/dL (70-99) 145mg/dL (70-99) 134mg/dL (70-99) 110mg/dL (70-99) Test 12/08/16 18:20 12/08/16 19:37 12/08/16 20:50 12/08/16 21:57 Glucose (Fingerstick) 154mg/dL (70-99) 149mg/dL (70-99) 129mg/dL (70-99) 130mg/dL (70-99) Test 12/08/16 23:02 12/09/16 05:03 12/09/16 07:48 Glucose (Fingerstick) 98mg/dL (70-99) 231mg/dL (70-99) White Blood Count 5.2x10^3/uL (4.0-11.0) Red Blood Count 4.64x10^6/uL (3.50-5.40) Hemoglobin 13.5g/dL (12.0-15.5) Hematocrit 40.2% (36.0-47.0) Mean Corpuscular Volume 87fL (79-100) Mean Corpuscular Hemoglobin 29pg (25-35) Mean Corpuscular Hemoglobin Concent 34g/dL (31-37) Red Cell Distribution Width 14.2% (11.5-14.5) Platelet Count 183x10^3/uL (140-400) Neutrophils (%) (Auto) 61% (31-73) Lymphocytes (%) (Auto) 27% (24-48) Monocytes (%) (Auto) 11% (0-9) Eosinophils (%) (Auto) 1% (0-3) Basophils (%) (Auto) 1% (0-3) Neutrophils # (Auto) 3.1x10^3uL (1.8-7.7) Lymphocytes # (Auto) 1.4x10^3/uL (1.0-4.8) Monocytes # (Auto) 0.6x10^3/uL (0.0-1.1) Eosinophils # (Auto) 0.1x10^3/uL (0.0-0.7) Basophils # (Auto) 0.0x10^3/uL (0.0-0.2) Sodium Level 143mmol/L (136-145) Potassium Level 3.3mmol/L (3.5-5.1) Chloride Level 108mmol/L (98-107) Carbon Dioxide Level 14mmol/L (21-32) Anion Gap 21 (6-14) Blood Urea Nitrogen 3mg/dL (7-20) Creatinine 0.6mg/dL (0.6-1.0) Estimated GFR (Cockcroft-Gault) 108.1 Glucose Level 222mg/dL (70-99) Calcium Level 8.5mg/dL (8.5-10.1) Review of Systems Review of Systems not feeling great, no focal sz VIKTORIA TORREZ MD Dec 09, 2016 13:03
[2016-12-09 15:00] VITALS: BP 106/69
[2016-12-09] MEDS ORDERED: LORAZEPAM 1 MG TABLET. PO PRN (18:00)
[2016-12-09] MEDS ORDERED: CEFTRIAXONE SODIUM 2 GM in IV NORMAL SALINE 100ML 100 ML IV SCH (18:00)
[2016-12-09 19:00] VITALS: BP 111/72
[2016-12-09] MEDS: METOCLOPRAMIDE 5 MG TABLET PO PRN (19:31)
[2016-12-09] MEDS: POTASSIUM CHLORIDE 20 MEQ TABLET.ER. PO SCH (19:32)
[2016-12-09] MEDS: HYDROCODONE/APAP 5/325MG TABLET. PO PRN (19:32)
[2016-12-09] MEDS: POTASSIUM CHLORIDE 30 MEQ in IV 1/2 NORMAL SALINE 1,000 ML IV SCH (19:41)
[2016-12-09] MEDS ORDERED: INSULIN DETEMIR 300 UNITS/3 ML INSULN.PEN. SQ SCH (21:00)
[2016-12-09] MEDS: lamoTRIgine 100 MG TABLET. PO SCH (21:52)
[2016-12-09 23:00] VITALS: BP 92/60
[2016-12-10] MEDS: SUMATRIPTAN SUCCINATE 100 MG TABLET. PO PRN (01:53)
[2016-12-10 03:00] VITALS: BP 112/82
[2016-12-10] MEDS: POTASSIUM CHLORIDE 30 MEQ in IV 1/2 NORMAL SALINE 1,000 ML IV SCH (03:17)
[2016-12-10 04:56] LABS: BASO % 1 % (0-3); EOS % 2 % (0-3); HEMATOCRIT 38.7 % (36.0-47.0); HEMOGLOBIN 12.8 g/dL (12.0-15.5); LYMPH # 1.5 x10^3/uL (1.0-4.8); LYMPH % 44 % (24-48); MEAN CORPUSCULAR HEMOGLOBIN 29 pg (25-35); MEAN CORPUSCULAR HGB CONC 33 g/dL (31-37); MEAN CORPUSCULAR VOLUME 88 fL (79-100); MONO % 12 % (0-9); NEUT % 40 % (31-73); PLATELET COUNT 161 x10^3/uL (140-400); RED CELL DISTRIBUTION WIDTH 14.2 % (11.5-14.5); WHITE BLOOD COUNT 3.5 x10^3/uL (4.0-11.0)
[2016-12-10 05:41] LABS: ALBUMIN 2.8 g/dL (3.4-5.0); ALBUMIN/GLOBULIN RATIO 1.3 (1.0-1.7); CALCIUM 8.3 mg/dL (8.5-10.1); CREATININE 0.6 mg/dL (0.6-1.0); GFR 108.1; MAGNESIUM 1.6 mg/dL (1.8-2.4); POTASSIUM 3.8 mmol/L (3.5-5.1); TOTAL BILIRUBIN 0.4 mg/dL (0.2-1.0); TOTAL PROTEIN 4.9 g/dL (6.4-8.2)
[2016-12-10 07:45] VITALS: BP 105/76
[2016-12-10] MEDS: INSULIN ASPART 300 UNITS/3 ML INSULN.PEN SQ SCH ×4 (08:00→12:00)
[2016-12-10] MEDS: TOPIRAMATE 100 MG TABLET. PO SCH (08:17)
[2016-12-10] MEDS: ARIPIPRAZOLE 5 MG TABLET. PO SCH (08:17)
[2016-12-10] MEDS: SERTRALINE 50 MG TABLET. PO SCH (08:17)
[2016-12-10] MEDS: POTASSIUM CHLORIDE 20 MEQ TABLET.ER. PO SCH (08:17)
[2016-12-10 10:50] VITALS: BP 92/58
[2016-12-10 15:00] VITALS: BP 118/80
--- NOTE | 2016-12-10 15:47 | PDOC ---
PROGRESS NOTES Chief Complaint Chief Complaint DKA ASSESSMENT AND PLAN: 1. DKA: resolved 2. Hyperglycemia: borderline control. increase home levemir/lantus to 40 3. UTI: empiric ceftriax x3d. cult results not available (yet) 4. Hypokalemia: resolved 5. Bipolar D/O: continue impressive home regimen 6. Multi-substance abuse: screen pos for EtOH, benzos and opiates. no w/d sx Dispo: home today; needs PCP! d/w pt: daughter will help. script for glumeter and strips written Vitals Vitals Vital Signs Date Time Temp Pulse Resp B/P Pulse Ox O2 Delivery O2 Flow Rate FiO2 12/10/16 10:50 98.1 100 20 92/58 99 Room Air 98.1 12/10/16 07:45 2.0 Physical Exam General: Alert, Cooperative, No acute distress Lungs: Clear Abdomen: Normal bowel sounds, Soft, Other (min tender) Extremities: No clubbing Skin: No breakdown Labs LABS Laboratory Tests Test 12/09/16 16:52 12/09/16 21:11 12/10/16 03:45 12/10/16 07:49 Glucose (Fingerstick) 277mg/dL (70-99) 234mg/dL (70-99) 114mg/dL (70-99) White Blood Count 3.5x10^3/uL (4.0-11.0) Red Blood Count 4.40x10^6/uL (3.50-5.40) Hemoglobin 12.8g/dL (12.0-15.5) Hematocrit 38.7% (36.0-47.0) Mean Corpuscular Volume 88fL (79-100) Mean Corpuscular Hemoglobin 29pg (25-35) Mean Corpuscular Hemoglobin Concent 33g/dL (31-37) Red Cell Distribution Width 14.2% (11.5-14.5) Platelet Count 161x10^3/uL (140-400) Neutrophils (%) (Auto) 40% (31-73) Lymphocytes (%) (Auto) 44% (24-48) Monocytes (%) (Auto) 12% (0-9) Eosinophils (%) (Auto) 2% (0-3) Basophils (%) (Auto) 1% (0-3) Neutrophils # (Auto) 1.4x10^3uL (1.8-7.7) Lymphocytes # (Auto) 1.5x10^3/uL (1.0-4.8) Monocytes # (Auto) 0.4x10^3/uL (0.0-1.1) Eosinophils # (Auto) 0.1x10^3/uL (0.0-0.7) Basophils # (Auto) 0.0x10^3/uL (0.0-0.2) Sodium Level 142mmol/L (136-145) Potassium Level 3.8mmol/L (3.5-5.1) Chloride Level 109mmol/L (98-107) Carbon Dioxide Level 18mmol/L (21-32) Anion Gap 15 (6-14) Blood Urea Nitrogen 1mg/dL (7-20) Creatinine 0.6mg/dL (0.6-1.0) Estimated GFR (Cockcroft-Gault) 108.1 BUN/Creatinine Ratio 2 (6-20) Glucose Level 178mg/dL (70-99) Calcium Level 8.3mg/dL (8.5-10.1) Magnesium Level 1.6mg/dL (1.8-2.4) Total Bilirubin 0.4mg/dL (0.2-1.0) Aspartate Amino Transf (AST/SGOT) 20U/L (15-37) Alanine Aminotransferase (ALT/SGPT) 31U/L (14-59) Alkaline Phosphatase 116U/L (46-116) Total Protein 4.9g/dL (6.4-8.2) Albumin 2.8g/dL (3.4-5.0) Albumin/Globulin Ratio 1.3 (1.0-1.7) Test 12/10/16 11:00 Glucose (Fingerstick) 174mg/dL (70-99) Review of Systems Review of Systems feels fine, eager to go home Comment Review of Relevant VIKTORIA TORREZ MD Dec 10, 2016 15:47
[2016-12-10] MEDS ORDERED: INSU100I13 SQ (18:10)
--- NOTE | 2016-12-11 23:43 | DS ---
DATE OF DISCHARGE: 12/10/2016 CHIEF COMPLAINT: DKA. HOSPITAL COURSE: The patient is a 46-year-old insulin-dependent diabetic who presented to the Emergency Room after having run out of her insulin and sticks about a week ago. She was not feeling well and was indeed found with hyperglycemia and DKA. She was initially started on insulin drip, which was later converted to Levemir and insulin sliding scale. Blood sugars were slowly brought under control. Suspicion for UTI was given with urinalysis showing elevated WBC and bacteria. Final path was pending at time of discharge, but the patient had been started on empiric ceftriaxone. For her bipolar disorder, her entire home regimen was continued. The patient requested discharge on the . PHYSICAL EXAMINATION: Please refer to note from same day. DISCHARGE DISPOSITION: To home. DISCHARGE CONDITION: Improved. DISCHARGE DIAGNOSES: Diabetic ketoacidosis, urinary tract infection. DISCHARGE MEDICATIONS: Please refer to MAR. DISCHARGE INSTRUCTIONS: The patient will seek a primary care physician JONI for further monitoring of her insulin regimen. VIKTORIA TORREZ MD DR: SHEY/nts JOB#: [id number] / [id number] PATRICK
== END 2016-12-10 18:35 | disposition home or self-care (01) | DRG 638 ==
LOC: ER 18:44 → UNDOADMIN 12-08 01:43 → 1 WEST ICU 12-08 01:43 → ED HOLD 12-08 03:25 → 5 NORTH 12-08 10:08
PROVIDERS: ADMIT Internal Medicine; ATTEND Internal Medicine
DX: E10.10 Type 1 diabetes mellitus with ketoacidosis without coma (principal); N39.0 Urinary tract infection, site not specified; A08.4 Viral intestinal infection, unspecified; F19.10 Other psychoactive substance abuse, uncomplicated; F31.9 Bipolar disorder, unspecified; E87.6 Hypokalemia; G43.909 Migraine, unspecified, not intractable, without status migrainosus; Z79.4 Long term (current) use of insulin; Z79.899 Other long term (current) drug therapy; Z90.49 Acquired absence of other specified parts of digestive tract; Z83.3 Family history of diabetes mellitus
CPT/HCPCS: 36415; 71010; 80048; 80053; 81001; 81025; 82947; 83735; 84100; 85007; 85027; 87804; 93005; 94640; 96361; 96365; 96375; 96376; G0481; J0696; J1815; J1885; J2270; J2405; J2765; J3475; J3480; J7030; J7060; J8597; 99285-25